=== PATIENT | female | born 2005 | race Caucasian/White ===

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

== ENCOUNTER 2023-12-09 16:23 | Emergency (ER) | payer BC, MEDICAID | END 2023-12-09 16:28 | disposition home or self-care (01) | DRG 951 | LOC: ED 16:23 → LWOBS 16:28 → ED 16:28 | DX: Z53.21 Procedure and treatment not carried out due to patient leaving prior to being seen by health care provider (principal) ==